=== PATIENT | female | born 1940 ===

== ENCOUNTER 2018-05-07 18:48 | Observation (INO) | payer MEDICARE, OTHER ==
[2018-05-07 18:49] VITALS: BMI 36.6
--- NOTE | 2018-05-07 20:22 | C.PDOC ---
History Of Present Illness 77 yr old F w/ hx of DM, HTN p/w cough, congestion, body aches for she was seen 1 week prior at [facility]. Pt was diagnosed with anxiety / Gastric reflux on 05/04 and was supposed to have started trazodone at that time. Daughter bedside notes that nothing was done at either hospital although bcx, labs and ct imaging, abx and tamiflu were all done. Per daughter and pt, pt has had cough, fever and body aches over the past 1.5 weeks, that has stayed relatively the same. It has not worsened nor improved. Pt had round of abx as well as tamiflu. She denies any neck stiffness of AMS. No fall or trauma. No GI or complaints. No CP, only sob and cough. No leg swelling. No other complaints. Time Seen by Provider: 05/07/18 19:24 Chief Complaint (Nursing): Flu-like Symptoms Past Medical History Vital Signs: Last Vital Signs Temp 98.9 F 05/07/18 19:11 Pulse 106 H 05/07/18 19:11 Resp 22 05/07/18 19:11 BP 127/77 05/07/18 19:11 Pulse Ox 91 L 05/07/18 19:11 - Medical History PMH: Arthritis, Back Problems, Diabetes (type II), Gastritis, HTN, Hypercholesterolemia, Hyperlipidemia, Osteoporosis, Chronic Pain (back) Denies: Hepatitis, HIV, Chronic Kidney Disease, Seizures, Sexually Transmitted Disease Surgical History: Endoscopy, (x3) - [facility] Procedures INJECT/INFUSE NEC (12/11/14) Family History: States: Unknown Family Hx - Social History Hx Alcohol Use: No Hx Substance Use: No - Immunization History Hx Tetanus Toxoid Vaccination: No Hx Influenza Vaccination: No Hx Pneumococcal Vaccination: No Review Of Systems Constitutional: Positive for: Fever, Chills. Negative for: Sweats Eyes: Negative for: Pain, Vision Change ENT: Positive for: Nose Congestion. Negative for: Ear Pain, Ear Discharge, Mouth Pain, Mouth Swelling Cardiovascular: Negative for: Chest Pain, Palpitations, Orthopnea, Edema Respiratory: Positive for: Cough, Shortness of Breath. Negative for: Hemoptysis, SOB with Excertion, Pleuritic Pain, Sputum Gastrointestinal: Negative for: Nausea, Vomiting, Abdominal Pain, Constipation, Melena, Hematochezia, Hematemesis Genitourinary: Negative for: Dysuria, Frequency, Hematuria, Vaginal Discharge Musculoskeletal: Negative for: Neck Pain, Shoulder Pain, Back Pain Skin: Negative for: Rash, Lesions, Jaundice Neurological: Negative for: Weakness, Numbness Psych: Negative for: Anxiety Physical Exam - Physical Exam Appears: Well, Non-toxic, No Acute Distress Skin: Normal Color, Warm Head: Atraumatic, Normacephalic Eye(s): bilateral: Normal Inspection, PERRL, EOMI Ear(s): Bilateral: Normal Nose: Normal Oral Mucosa: Moist Tongue: Normal Appearing Lips: Normal Appearing Teeth: Normal Dentition Gingiva: Normal Appearing Throat: Normal, No Erythema, No Exudate Neck: Normal, Normal ROM, Supple, Other (no meningeal signs) Lymphatic: Normal Exam Chest: Symmetrical Cardiovascular: Other (tachy) Respiratory: Normal Breath Sounds, No Decreased Breath Sounds, No Accessory Muscle Use, No Rales, No Rhonchi, No Stridor, No Wheezing Gastrointestinal/Abdominal: Normal Exam, Soft, No Tenderness Back: Normal Inspection, No CVA Tenderness, No Vertebral Tenderness, No De creased ROM Extremity: No Normal ROM Extremity: Bilateral: Atraumatic Pulses: Left Dorsalis Pedis: Normal, Right Dorsalis Pedis: Normal Neurological/Psych: Oriented x3, Normal Speech, Normal Cognition Extremity: Right: No Drift, Left: No Drift, Upper: No Drift, Lower: No Drift ED Course And Treatment - Laboratory Results Result Diagrams: 05/07/18 20:23 05/07/18 20:23 O2 Sat by Pulse Oximetry: 91 Medical Decision Making Medical Decision Makin yr old F w/ hx of HTN, Gastritis, DM p/w cough, fever, congestion. Seen previously at [facility] multiple times for similiar complaints w/ +gastritis. Was rx w/ abx and tamiflu. Has not had much improvement with either. BCX x2 previously reviewed were negative. UCX w/ Klebsiella on 05/01. No urinary complaints however but diffuse weakness and has been having intermittent abd pain x 1week. per pt. Non-unilateral weakness. On exam no FND noted. Will seek labs and imaging. WBC 13k, Tachy at 92 UTI w/ 10 WBC, 2LE. previous susceptibilities noted of previous +Urine CUL and Cipro started BP stable. Bcx drawn previously Will likely require admission given UTI, weakness, inability to do ADLs. ASIM PMD: clinic doctor. Dr. Martel paged to eval pt Dr. Martel (IM) bedside evaluating pt. [id number] Martel to his service: requesting repeat UA (straight cath) Pt in NAD and agreeable to plan. Disposition - Disposition Disposition Time: 00:54 Condition: GOOD Forms: [facility] (Croatian) - Clinical Impression Clinical Impression: Influenza-like illness, UTI (urinary tract infection)
[2018-05-07 20:30] LABS: BASO % 0.2 % (0.0-2.0); HEMOGLOBIN 13.7 g/dL (11.0-16.0); LYMPH # 1.7 K/uL (1.0-4.3); LYMPH % 12.2 % (20.0-40.0); MEAN CELL VOLUME 86.7 fL (81.0-99.0); MEAN CORPUSCULAR HEMOGLOBIN 27.9 pg (27.0-31.0); MEAN CORPUSCULAR HGB CONC 32.2 g/dL (33.0-37.0); MEAN PLATELET VOLUME 10.4 fL (7.2-11.7); MONO # 1.2 K/uL (0.0-0.8); MONO % 8.7 % (0.0-10.0); NEUT % 78.9 % (50.0-75.0); RBC 4.92 Mil/uL (3.80-5.20); RED CELL DISTRIBUTION WIDTH 14.1 % (11.5-14.5); WHITE BLOOD COUNT 13.9 K/uL (4.8-10.8)
[2018-05-07 20:42] LABS: ALB/GLOB RATIO 1.4 (1.0-2.1); ALBUMIN 4.5 g/dL (3.5-5.0); ALT/SGPT 29 U/L (9-52); AST/SGOT 47 U/L (14-36); BLOOD UREA NITROGEN 6 mg/dL (7-17); CALCIUM 8.9 mg/dl (8.6-10.4); GFR NON-AFRICAN AMERICAN > 60
[2018-05-07 20:49] LABS: VENOUS BLOOD GAS BASE EXCESS 7.8 mmol/L (0.0-2.0); VENOUS BLOOD GAS PCO2 49 mmHg (40-60); VENOUS BLOOD GAS PO2 26 mm/Hg (30-55); VENOUS BLOOD PH 7.44 (7.32-7.43)
[2018-05-07 20:54] LABS: B-TYPE NATRIURETIC PEPTIDE 196 pg/mL (0-900)
[2018-05-07 23:02] LABS: SQUAMOUS EPITHIAL 1 /hpf (0-5); URINE BACTERIA RARE (<OCC); URINE BILIRUBIN NEGATIVE (NEGATIVE); URINE BLOOD 1+ (NEGATIVE); URINE CLARITY Clear (Clear); URINE COLOR Yellow (YELLOW); URINE GLUCOSE (UA) NORMAL (Normal); URINE LEUKOCYTE ESTERASE 2+ Leu/uL (Negative); URINE PROTEIN NEGATIVE (NEGATIVE); URINE UROBILINOGEN NORMAL mg/dL (0.2-1.0)
[2018-05-07] MEDS ORDERED: Ciprofloxacin 400mg/200ml D5W 400 MG/200 ML BAG IVPB STA (23:43)
[2018-05-07] MEDS ORDERED: Ciprofloxacin 400mg/200ml D5W 400 MG/200 ML BAG IVPB ONE (23:52)
[2018-05-08] MEDS: Sodium Chloride 0.9% 1,000 ML IV SCH ×4 (01:54→20:05)
--- NOTE | 2018-05-08 02:26 | CP.PCM.HP ---
<Corbin Martel P - Last Filed: 05/08/18 08:52> Meds Allergies/Adverse Reactions: Allergies Allergy/AdvReac Type Severity Reaction Status Date / Time No Known Allergies Allergy Verified 05/07/18 19:18 Results - Vital Signs Recent Vital Signs: Last Vital Signs Temp 98.9 F 05/08/18 06:59 Pulse 89 05/08/18 06:59 Resp 17 05/08/18 06:59 BP 156/81 H 05/08/18 06:59 Pulse Ox 94 L 05/08/18 06:59 - Labs Result Diagrams: 05/08/18 05:11 05/08/18 05:11 Labs: Laboratory Results - last 24 hr 05/07/18 05/07/18 05/07/18 20:23 20:23 20:23 WBC 13.9 H RBC 4.92 Hgb 13.7 Hct 42.7 MCV 86.7 MCH 27.9 MCHC 32.2 L RDW 14.1 Plt Count 255 MPV 10.4 Neut % (Auto) 78.9 H Lymph % (Auto) 12.2 L [place] % (Auto) 8.7 Eos % (Auto) 0.0 Baso % (Auto) 0.2 Neut # (Auto) 11.0 H Lymph # (Auto) 1.7 [place] # (Auto) 1.2 H Eos # (Auto) 0.0 Baso # (Auto) 0.0 pO2 VBG pH VBG pCO2 VBG HCO3 VBG Total CO2 VBG O2 Sat (Calc) VBG Base Excess VBG Potassium Glucose Lactate Sodium 135 Potassium 3.1 L Chloride 93 L Carbon Dioxide 32 H Anion Gap 13 BUN 6 L Creatinine 0.7 Est GFR ( Amer) > 60 Est GFR (Non-Af Amer) > 60 Random Glucose 150 H Calcium 8.9 Phosphorus Magnesium Total Bilirubin 1.5 H AST 47 H D ALT 29 Alkaline Phosphatase 95 Troponin I < 0.0120 NT-Pro-B Natriuret Pep 196 Total Protein 7.7 Albumin 4.5 Globulin 3.2 Albumin/Globulin Ratio 1.4 Venous Blood Potassium Urine Color Urine Clarity Urine pH Ur Specific [place] Urine Protein Urine Glucose (UA) Urine Ketones Urine Blood Urine Nitrate Urine Bilirubin Urine Urobilinogen Ur Leukocyte Esterase Urine WBC (Auto) Urine RBC (Auto) Ur Squamous Epith Cells Urine Bacteria Influenza Typ A,B (EIA) Negative for flu a/b 05/07/18 05/07/18 05/08/18 20:45 22:48 05:11 WBC 14.9 H RBC 4.47 Hgb 12.3 Hct 38.9 MCV 87.0 MCH 27.6 MCHC 31.7 L RDW 14.2 Plt Count 216 MPV 9.8 Neut % (Auto) 76.0 H Lymph % (Auto) 14.4 L [place] % (Auto) 9.2 Eos % (Auto) 0.0 Baso % (Auto) 0.4 Neut # (Auto) 11.3 H Lymph # (Auto) 2.2 [place] # (Auto) 1.4 H Eos # (Auto) 0.0 Baso # (Auto) 0.1 pO2 26 L VBG pH 7.44 H VBG pCO2 49 VBG HCO3 29.8 VBG Total CO2 34.8 H VBG O2 Sat (Calc) 53.0 VBG Base Excess 7.8 H VBG Potassium 3.2 L Glucose 153 H Lactate 1.4 Sodium 137.0 Potassium Chloride 99.0 Carbon Dioxide Anion Gap BUN Creatinine Est GFR ( Amer) Est GFR (Non-Af Amer) Random Glucose Calcium Phosphorus Magnesium Total Bilirubin AST ALT Alkaline Phosphatase Troponin I NT-Pro-B Natriuret Pep Total Protein Albumin Globulin Albumin/Globulin Ratio Venous Blood Potassium 3.2 L Urine Color Yellow Urine Clarity Clear Urine pH 5.0 Ur Specific [place] 1.011 Urine Protein Negative Urine Glucose (UA) Normal Urine Ketones 2+ H Urine Blood 1+ H Urine Nitrate Negative Urine Bilirubin Negative Urine Urobilinogen Normal Ur Leukocyte Esterase 2+ H Urine WBC (Auto) 10 H Urine RBC (Auto) 2 Ur Squamous Epith Cells 1 Urine Bacteria Rare Influenza Typ A,B (EIA) 05/08/18 05:11 WBC RBC Hgb Hct MCV MCH MCHC RDW Plt Count MPV Neut % (Auto) Lymph % (Auto) [place] % (Auto) Eos % (Auto) Baso % (Auto) Neut # (Auto) Lymph # (Auto) [place] # (Auto) Eos # (Auto) Baso # (Auto) pO2 VBG pH VBG pCO2 VBG HCO3 VBG Total CO2 VBG O2 Sat (Calc) VBG Base Excess VBG Potassium Glucose Lactate Sodium 135 Potassium 2.7 L Chloride 103 Carbon Dioxide 25 Anion Gap 10 BUN 5 L Creatinine 0.5 L Est GFR ( Amer) > 60 Est GFR (Non-Af Amer) > 60 Random Glucose 123 H Calcium 7.1 L Phosphorus 3.4 Magnesium 1.7 Total Bilirubin 1.3 AST 32 ALT 28 Alkaline Phosphatase 69 Troponin I NT-Pro-B Natriuret Pep Total Protein 5.7 L Albumin 3.2 L D Globulin 2.5 Albumin/Globulin Ratio 1.3 Venous Blood Potassium Urine Color Urine Clarity Urine pH Ur Specific [place] Urine Protein Urine Glucose (UA) Urine Ketones Urine Blood Urine Nitrate Urine Bilirubin Urine Urobilinogen Ur Leukocyte Esterase Urine WBC (Auto) Urine RBC (Auto) Ur Squamous Epith Cells Urine Bacteria Influenza Typ A,B (EIA) Attending/Attestation - Attestation I have personally seen and examined this patient.: Yes I have fully participated in the care of the patient.: Yes I have reviewed all pertinent clinical information: Yes Notes (Text): 05/08/18 07:31 Flu like symptom, productive cough, poor intake, headache, bodyache, low grade temp at home Clinical dehydration, with mild contraction alkalosis, hypokalemia Recent severe gastritis on EGD due to NSAIDS use for arthritis NIDDM on metformin H/o htn Abnormal UA without any clinical signs and symptoms related to uti Plan IVF Doxycycline for bronchitis UA/CS catherterized sample temp hold on metformin as patient currently going through f/u like symptoms Continue PPI, sucralfate, losartan GI/DVt prophylaxis Accchecks, sliding scale depending on accuchecks See orders for detail. 05/08/18 07:35 <Rick Alvarez - Last Filed: 05/08/18 09:27> History of Present Illness - History of Present Illness History of Present Illness: PGY1 H&P for medicine hospitalist CC: weakness, cough This is a 77 year old female with PMH of arthritis, NIDDM2, back problems, HTN, hypercholesterolemia, osteoporosis who complains of a 1.5 week history of flu like symptoms, productive cough, and bodyaches. Patient also reports feeling weak and having poor oral intake. Endorses low grade fever at home. Pt was recently diagnosed with gastritis on EGD secondary to NSAID use for arthritic pain. Patient denies chest pain, sob, abdominal pain. PMD: Dr. Melton GI: Dr. Stack PMH: arthritis, NIDDM2, back problems, HTN, hypercholesterolemia, osteoporosis, recently diagnosed with gastritis on EGD secondary to NSAID use for arthritic pain PSH: (x3) Meds: Metformin, HCTZ, Losartan, Protonix, diflucan Allx: NKDA Present on Admission - Present on Admission Any Indicators Present on Admission: No Review of Systems - Review of Systems All systems: reviewed and no additional remarkable complaints except (as per HPI) Past Patient History - Infectious Disease Hx of Infectious Diseases: None - Past Medical History & Family History Past Medical History?: Yes - Past Social History Smoking Status: Never Smoked - CARDIAC Hx Hypercholesterolemia: Yes Hx Hypertension: Yes - PULMONARY Hx Tuberculosis: No - NEUROLOGICAL Hx Seizures: No - HEENT Hx HEENT Problems: No - RENAL Hx Chronic Kidney Disease: No - ENDOCRINE/METABOLIC Hx Endocrine Disorders: Yes Hx Diabetes Mellitus Type 2: Yes - HEMATOLOGICAL/ONCOLOGICAL Hx Human Immunodeficiency Virus (HIV): No - INTEGUMENTARY Hx Dermatological Problems: No - MUSCULOSKELETAL/RHEUMATOLOGICAL Hx Arthritis: Yes Hx Osteoporosis: Yes - GASTROINTESTINAL Hx Gastritis: Yes - GENITOURINARY/GYNECOLOGICAL Hx Sexually Transmitted Disorders: No - PSYCHIATRIC Hx Substance Use: No - SURGICAL HISTORY Hx Surgeries: Yes - ANESTHESIA Hx Anesthesia: Yes Hx Anesthesia Reactions: No Hx Malignant Hyperthermia: No Physical Exam - Constitutional Appears: Non-toxic, No Acute Distress - Head Exam Head Exam: NORMAL INSPECTION - Eye Exam Eye Exam: EOMI, Normal appearance - ENT Exam ENT Exam: Mucous Membranes Dry - Respiratory Exam Respiratory Exam: Clear to Auscultation Bilateral, NORMAL BREATHING PATTERN. absent: Rales, Rhonchi, Wheezes - Cardiovascular Exam Cardiovascular Exam: Tachycardia, REGULAR RHYTHM, +S1, +S2 - GI/Abdominal Exam GI & Abdominal Exam: Normal Bowel Sounds, Soft. absent: Tenderness - Extremities Exam Extremities exam: Positive for: normal inspection, pedal pulses present - Back Exam Back exam: NORMAL INSPECTION. absent: CVA tenderness (L), CVA tenderness (R) - Neurological Exam Neurological exam: Alert, Oriented x3 - Psychiatric Exam Psychiatric exam: Normal Affect, Normal Mood - Skin Skin Exam: Dry, Normal Color, Warm Additional comments: decreased skin turgor Results - Vital Signs Recent Vital Signs: Last Vital Signs Temp 98 F 05/07/18 23:28 Pulse 92 H 05/07/18 23:28 Resp 20 05/07/18 23:28 BP 135/69 05/07/18 23:28 Pulse Ox 91 L 05/08/18 00:56 - Labs Result Diagrams: 05/08/18 05:11 05/08/18 05:11 Labs: Laboratory Results - last 24 hr 05/07/18 05/07/18 05/07/18 20:23 20:23 20:23 WBC 13.9 H RBC 4.92 Hgb 13.7 Hct 42.7 MCV 86.7 MCH 27.9 MCHC 32.2 L RDW 14.1 Plt Count 255 MPV 10.4 Neut % (Auto) 78.9 H Lymph % (Auto) 12.2 L [place] % (Auto) 8.7 Eos % (Auto) 0.0 Baso % (Auto) 0.2 Neut # (Auto) 11.0 H Lymph # (Auto) 1.7 [place] # (Auto) 1.2 H Eos # (Auto) 0.0 Baso # (Auto) 0.0 pO2 VBG pH VBG pCO2 VBG HCO3 VBG Total CO2 VBG O2 Sat (Calc) VBG Base Excess VBG Potassium Glucose Lactate Sodium 135 Potassium 3.1 L Chloride 93 L Carbon Dioxide 32 H Anion Gap 13 BUN 6 L Creatinine 0.7 Est GFR ( Amer) > 60 Est GFR (Non-Af Amer) > 60 Random Glucose 150 H Calcium 8.9 Total Bilirubin 1.5 H AST 47 H D ALT 29 Alkaline Phosphatase 95 Troponin I < 0.0120 NT-Pro-B Natriuret Pep 196 Total Protein 7.7 Albumin 4.5 Globulin 3.2 Albumin/Globulin Ratio 1.4 Venous Blood Potassium Urine Color Urine Clarity Urine pH Ur Specific [place] Urine Protein Urine Glucose (UA) Urine Ketones Urine Blood Urine Nitrate Urine Bilirubin Urine Urobilinogen Ur Leukocyte Esterase Urine WBC (Auto) Urine RBC (Auto) Ur Squamous Epith Cells Urine Bacteria Influenza Typ A,B (EIA) Negative for flu a/b 05/07/18 05/07/18 20:45 22:48 WBC RBC Hgb Hct MCV MCH MCHC RDW Plt Count MPV Neut % (Auto) Lymph % (Auto) [place] % (Auto) Eos % (Auto) Baso % (Auto) Neut # (Auto) Lymph # (Auto) [place] # (Auto) Eos # (Auto) Baso # (Auto) pO2 26 L VBG pH 7.44 H VBG pCO2 49 VBG HCO3 29.8 VBG Total CO2 34.8 H VBG O2 Sat (Calc) 53.0 VBG Base Excess 7.8 H VBG Potassium 3.2 L Glucose 153 H Lactate 1.4 Sodium 137.0 Potassium Chloride 99.0 Carbon Dioxide Anion Gap BUN Creatinine Est GFR ( Amer) Est GFR (Non-Af Amer) Random Glucose Calcium Total Bilirubin AST ALT Alkaline Phosphatase Troponin I NT-Pro-B Natriuret Pep Total Protein Albumin Globulin Albumin/Globulin Ratio Venous Blood Potassium 3.2 L Urine Color Yellow Urine Clarity Clear Urine pH 5.0 Ur Specific [place] 1.011 Urine Protein Negative Urine Glucose (UA) Normal Urine Ketones 2+ H Urine Blood 1+ H Urine Nitrate Negative Urine Bilirubin Negative Urine Urobilinogen Normal Ur Leukocyte Esterase 2+ H Urine WBC (Auto) 10 H Urine RBC (Auto) 2 Ur Squamous Epith Cells 1 Urine Bacteria Rare Influenza Typ A,B (EIA) Assessment & Plan - Assessment and Plan (Free Text) Assessment: This is a 77 year old female with PMH of arthritis, NIDDM2, back problems, HTN, hypercholesterolemia, osteoporosis recently diagnosed with gastritis on EGD secondary to NSAID use for arthritic pain who complains of a 1.5 week history of flu like symptoms, productive cough, and bodyaches. Plan Dehydration with contraction alkalosis likely from recovering from flu Influenza a/b is negative NS IVF at 125 mL/hr bicarb 32, potassium is 3.1 on admission Replete potassium and f/u morning labs Bronchitis CXR shows no obvious infiltrate; f/u official reading Doxycycline 100 mg IVPB q12h Guaifenesin 600 mg PO BID NIDDM Hold metformin as patient currently going through flu like symptoms Accuchecks ACHS ISS low achs Recent gastritis diagnosis on EGD Protonix 40 mg PO BID Sucralfate 1 gm PO BID Hx of HTN Continue home losartan Hold HCTZ as pt has contraction alkalosis Abnormal UA F/u repeat UA/CS catheterized sample F/u procalcitonin GI/DVT ppx with Protonix and heparin 5000 units sc q12h CCD moderate Case reviewed and discussed with attending physician, Dr. Delonte Alvarez PGY1
[2018-05-08] MEDS: guaiFENesin 600 mg ER Tab PO SCH ×3 (02:47→18:54)
[2018-05-08] MEDS: Potassium Chloride 20 mEq ER Tab PO SCH ×2 (05:10→09:30)
[2018-05-08 05:15] LABS: BASO # 0.1 K/uL (0.0-0.2); BASO % 0.4 % (0.0-2.0); HEMOGLOBIN 12.3 g/dL (11.0-16.0); LYMPH # 2.2 K/uL (1.0-4.3); LYMPH % 14.4 % (20.0-40.0); MEAN CORPUSCULAR HEMOGLOBIN 27.6 pg (27.0-31.0); MEAN CORPUSCULAR HGB CONC 31.7 g/dL (33.0-37.0); MEAN PLATELET VOLUME 9.8 fL (7.2-11.7); MONO # 1.4 K/uL (0.0-0.8); MONO % 9.2 % (0.0-10.0); NEUT # 11.3 K/uL (1.8-7.0); RBC 4.47 Mil/uL (3.80-5.20); RED CELL DISTRIBUTION WIDTH 14.2 % (11.5-14.5); WHITE BLOOD COUNT 14.9 K/uL (4.8-10.8)
[2018-05-08 05:31] LABS: ALB/GLOB RATIO 1.3 (1.0-2.1); ALBUMIN 3.2 g/dL (3.5-5.0); ALT/SGPT 28 U/L (9-52); AST/SGOT 32 U/L (14-36); BLOOD UREA NITROGEN 5 mg/dL (7-17); CALCIUM 7.1 mg/dl (8.6-10.4); GFR NON-AFRICAN AMERICAN > 60
[2018-05-08] MEDS ORDERED: Pantoprazole 40 mg EC Tab PO ONE (06:25)
[2018-05-08] MEDS ORDERED: Potassium Chloride 20 mEq/15 ml LIQ UD ONE ×2 (06:25→12:16)
[2018-05-08] MEDS: Pantoprazole 40 mg Susp UD PO SCH ×2 (06:30→15:48)
[2018-05-08] MEDS ORDERED: traZODone 25 mg Tab PO PRN (07:27)
[2018-05-08] MEDS ORDERED: Dextrose 50% SYRINGE Inj (50 ml) IV PRN (09:24)
[2018-05-08] MEDS ORDERED: Glucagon Recombinant 1 mg Inj IM PRN (09:24)
[2018-05-08] MEDS: Sucralfate 1 gm/10 ml Oral Susp UD PO SCH ×2 (11:54→18:54)
--- NOTE | 2018-05-08 11:54 | RAD ---
Date of service: 05/07/2018 HISTORY: cough COMPARISON: No prior. TECHNIQUE: Chest PA and lateral FINDINGS: LUNGS: No active pulmonary disease. PLEURA: No significant pleural effusion identified. No pneumothorax apparent. CARDIOVASCULAR: No aortic atherosclerotic calcification present. Normal cardiac size. No pulmonary vascular congestion. OSSEOUS STRUCTURES: No significant abnormalities. VISUALIZED UPPER ABDOMEN: Normal. OTHER FINDINGS: None. IMPRESSION: No active disease. Concordant results with the preliminary interpretation rendered by the emergency department physician procedure.
[2018-05-08] MEDS ORDERED: Tramadol 25 mg PO STA (11:58)
[2018-05-08] MEDS ORDERED: (Novolin R) Insulin Human Regular 100 units/ml vial ONE (12:09)
[2018-05-08] MEDS: (Novolin R) Insulin Human Regular 100 units/ml vial SC SCH ×3 (12:09→22:07)
[2018-05-08] MEDS ORDERED: Potassium Chloride 20 mEq/15 ml LIQ UD PO ONE ×2 (12:30→16:30)
--- NOTE | 2018-05-08 17:04 | CP.PCM.PN ---
<Telly Franco - Last Filed: 05/08/18 17:12> Subjective - Date & Time of Evaluation Date of Evaluation: 05/08/18 Time of Evaluation: 17:01 - Subjective Subjective: HOSPITALIST SERVICE Pt seen and examined at bedside, Pt reports burning while urinating and GI u8pset, reports history of NSAID use and HPylori infection as diagnosed by EGD w/ Dr Darren Funez GI in dexter, noncompliant w/ meds, bilious productive cough. reports fevers and sweating. denies diarrhea, blood in urine/stools Objective - Vital Signs/Intake and Output Vital Signs (last 24 hours): Temp Pulse Resp BP Pulse Ox 97.5 F L 85 18 128/77 94 L 05/08/18 16:53 05/08/18 16:53 05/08/18 16:53 05/08/18 16:53 05/08/18 16:53 - Medications Medications: Current Medications Dextrose (Dextrose 50% Inj) 0 ml IV STAT PRN; Protocol PRN Reason: Hypoglycemia Protocol Dextrose (Glutose 15) 0 gm PO ONCE PRN; Protocol PRN Reason: Hypoglycemia Protocol Glucagon (Glucagen Diagnostic Kit) 0 mg IM STAT PRN; Protocol PRN Reason: Hypoglycemia Protocol Guaifenesin (Mucinex La) 600 mg PO BID [facility] Last Admin: 05/08/18 11:53 Dose: 600 mg Heparin Sodium (Porcine) (Heparin) 5,000 units SC Q12 [facility] Last Admin: 05/08/18 11:54 Dose: 5,000 units Sodium Chloride (Sodium Chloride 0.9%) 1,000 mls @ 125 mls/hr IV .Q8H [facility] Last Admin: 05/08/18 11:53 Dose: 125 mls/hr Doxycycline Hyclate 100 mg/ (Sodium Chloride) 100 mls @ 100 mls/hr IVPB Q12H [facility]; Protocol Last Admin: 05/08/18 11:53 Dose: 100 mls/hr Dextrose (Dextrose 5% In Water 1000 Ml) 1,000 mls @ 0 mls/hr IV .Q0M PRN; Protocol PRN Reason: Hypoglycemia Protocol Insulin Human Regular (Novolin R) 0 unit SC ACHS [facility]; Protocol Last Admin: 05/08/18 12:09 Dose: 1 unit Losartan Potassium (Cozaar) 100 mg PO DAILY [facility] Last Admin: 05/08/18 11:54 Dose: 100 mg Pantoprazole Sodium (Protonix Susp) 40 mg PO 0600,1600 [facility] Last Admin: 05/08/18 15:48 Dose: 40 mg Sucralfate (Carafate Oral Susp) 1 gm PO BID [facility] Last Admin: 05/08/18 11:54 Dose: 1 gm Trazodone HCl (Desyrel) 25 mg PO HS PRN PRN Reason: Insomnia - Labs Labs: 05/08/18 05:11 05/08/18 05:11 - Additional Findings Additional findings: - Constitutional Appears: Non-toxic, No Acute Distress - Head Exam Head Exam: NORMAL INSPECTION - Eye Exam Eye Exam: EOMI, Normal appearance - ENT Exam ENT Exam: Mucous Membranes Dry - Respiratory Exam Respiratory Exam: Clear to Auscultation Bilateral, NORMAL BREATHING PATTERN. absent: Rales, Rhonchi, Wheezes - Cardiovascular Exam Cardiovascular Exam: Tachycardia, REGULAR RHYTHM, +S1, +S2 - GI/Abdominal Exam GI & Abdominal Exam: Normal Bowel Sounds, Soft. absent: Tenderness - Extremities Exam Extremities exam: Positive for: normal inspection, pedal pulses present - Back Exam Back exam: NORMAL INSPECTION. absent: CVA tenderness (L), CVA tenderness (R) - Neurological Exam Neurological exam: Alert, Oriented x3 - Psychiatric Exam Psychiatric exam: Normal Affect, Normal Mood - Skin Skin Exam: Dry, Normal Color, Warm Additional comments: decreased skin turgor Assessment and Plan - Assessment and Plan (Free Text) Assessment: This is a 77 year old female with PMH of arthritis, NIDDM2, back problems, HTN, hypercholesterolemia, osteoporosis recently diagnosed with gastritis on EGD secondary to NSAID use for arthritic pain who complains of a 1.5 week history of flu like symptoms, productive cough, and bodyaches. Plan UTI f/u urine cultures Doxy 100 IVPB started 05/08 Recent gastritis diagnosis on EGD Dr Chandler Consulted GI f/u am H Pylori and Cdiff Protonix 40 mg PO BID Sucralfate 1 gm PO BID Dehydration with contraction alkalosis likely from recovering from flu Influenza a/b is negative NS IVF at 125 mL/hr Replete potassium and f/u morning labs Bronchitis CXR shows no obvious infiltrate; f/u official reading Doxycycline 100 mg IVPB q12h Guaifenesin 600 mg PO BID NIDDM Hold metformin as patient currently going through flu like symptoms Accuchecks ACHS ISS low achs Hx of HTN Continue home losartan Hold HCTZ as pt has contraction alkalosis GI/DVT ppx with Protonix and heparin 5000 units sc q12h CCD moderate Case reviewed and discussed with attending physician, Dr. Devi Franco PGY1 <Mervat Quinonez - Last Filed: 05/08/18 19:45> Objective - Vital Signs/Intake and Output Vital Signs (last 24 hours): Temp Pulse Resp BP Pulse Ox 98.2 F 82 20 144/79 96 05/08/18 19:30 05/08/18 19:30 05/08/18 19:30 05/08/18 19:30 05/08/18 19:30 - Medications Medications: Current Medications Dextrose (Dextrose 50% Inj) 0 ml IV STAT PRN; Protocol PRN Reason: Hypoglycemia Protocol Dextrose (Glutose 15) 0 gm PO ONCE PRN; Protocol PRN Reason: Hypoglycemia Protocol Glucagon (Glucagen Diagnostic Kit) 0 mg IM STAT PRN; Protocol PRN Reason: Hypoglycemia Protocol Guaifenesin (Mucinex La) 600 mg PO BID [facility] Last Admin: 05/08/18 18:54 Dose: 600 mg Heparin Sodium (Porcine) (Heparin) 5,000 units SC Q12 [facility] Last Admin: 05/08/18 11:54 Dose: 5,000 units Sodium Chloride (Sodium Chloride 0.9%) 1,000 mls @ 125 mls/hr IV .Q8H [facility] Last Admin: 05/08/18 17:54 Dose: 125 mls/hr Doxycycline Hyclate 100 mg/ (Sodium Chloride) 100 mls @ 100 mls/hr IVPB Q12H [facility]; Protocol Last Admin: 05/08/18 11:53 Dose: 100 mls/hr Dextrose (Dextrose 5% In Water 1000 Ml) 1,000 mls @ 0 mls/hr IV .Q0M PRN; Protocol PRN Reason: Hypoglycemia Protocol Insulin Human Regular (Novolin R) 0 unit SC ACHS [facility]; Protocol Last Admin: 05/08/18 16:55 Dose: 1 unit Losartan Potassium (Cozaar) 100 mg PO DAILY [facility] Last Admin: 05/08/18 11:54 Dose: 100 mg Pantoprazole Sodium (Protonix Susp) 40 mg PO 0600,1600 [facility] Last Admin: 05/08/18 15:48 Dose: 40 mg Sucralfate (Carafate Oral Susp) 1 gm PO BID [facility] Last Admin: 05/08/18 18:54 Dose: 1 gm Trazodone HCl (Desyrel) 25 mg PO HS PRN PRN Reason: Insomnia - Labs Labs: 05/08/18 05:11 05/08/18 05:11 Attending/Attestation - Attestation I have personally seen and examined this patient.: Yes I have fully participated in the care of the patient.: Yes I have reviewed all pertinent clinical information, including history, physical exam and plan: Yes Notes (Text): seen and examined this morning in the ER. Patient looks sick . complsining of feeling tired and poor appetite,not eating for few days,nausea,s/p diarrhea and epigastric pain. Has h/o EGD as mentioned by the resident. positive H pylori,not completed her meds? As per her daughter and her G daughters at bedside. she is weak and decline ambulation and ADL we will continue hydration,diet as tolerated,follow stool study.follow H pylori Ab,continue protonix, GI consult Has cough and bronchitis . we will continue doxycycline.Urine not collected properly,repeat UA,follow culture follow electrolytes afte replace K PT evaluation
[2018-05-08 19:31] VITALS: RESP 20
[2018-05-09] MEDS: Pantoprazole 40 mg Susp UD PO SCH (05:36)
[2018-05-09] MEDS: Sodium Chloride 0.9% 1,000 ML IV SCH (06:09)
[2018-05-09 07:30] LABS: BASO % 0.3 % (0.0-2.0); EOS # 0.1 K/uL (0.0-0.7); EOS % 0.6 % (0.0-4.0); HEMOGLOBIN 11.9 g/dL (11.0-16.0); LYMPH # 1.7 K/uL (1.0-4.3); LYMPH % 14.4 % (20.0-40.0); MEAN CORPUSCULAR HEMOGLOBIN 28.2 pg (27.0-31.0); MEAN CORPUSCULAR HGB CONC 32.8 g/dL (33.0-37.0); MEAN PLATELET VOLUME 9.9 fL (7.2-11.7); MONO # 1.2 K/uL (0.0-0.8); MONO % 10.2 % (0.0-10.0); NEUT # 8.7 K/uL (1.8-7.0); NEUT % 74.5 % (50.0-75.0); RBC 4.22 Mil/uL (3.80-5.20); RED CELL DISTRIBUTION WIDTH 14.3 % (11.5-14.5); WHITE BLOOD COUNT 11.7 K/uL (4.8-10.8)
--- NOTE | 2018-05-09 07:34 | CP.PCM.PN ---
<SalvadorTelly - Last Filed: 05/10/18 13:38> Subjective - Date & Time of Evaluation Date of Evaluation: 05/09/18 Time of Evaluation: 07:31 - Subjective Subjective: HOSPITALIST SERVICE Pt seen and examined at bedside, reports improvement in dysuria, reports breathing better, denies fever chills overnight however still feels fatigued and generalized body aches, denies chest pain, SOB NV. Pt understands current status and agrees with plan, daughter at bedside. Objective - Vital Signs/Intake and Output Vital Signs (last 24 hours): Temp Pulse Resp BP Pulse Ox 98.3 F 84 20 127/79 93 L 05/08/18 23:50 05/08/18 23:50 05/08/18 23:50 05/08/18 23:50 05/09/18 00:40 - Medications Medications: Current Medications Dextrose (Dextrose 50% Inj) 0 ml IV STAT PRN; Protocol PRN Reason: Hypoglycemia Protocol Dextrose (Glutose 15) 0 gm PO ONCE PRN; Protocol PRN Reason: Hypoglycemia Protocol Glucagon (Glucagen Diagnostic Kit) 0 mg IM STAT PRN; Protocol PRN Reason: Hypoglycemia Protocol Guaifenesin (Mucinex La) 600 mg PO BID [facility] Last Admin: 05/08/18 18:54 Dose: 600 mg Heparin Sodium (Porcine) (Heparin) 5,000 units SC Q12 [facility] Last Admin: 05/08/18 21:58 Dose: 5,000 units Doxycycline Hyclate 100 mg/ (Sodium Chloride) 100 mls @ 100 mls/hr IVPB Q12H [facility]; Protocol Last Admin: 05/08/18 21:58 Dose: 100 mls/hr Dextrose (Dextrose 5% In Water 1000 Ml) 1,000 mls @ 0 mls/hr IV .Q0M PRN; Protocol PRN Reason: Hypoglycemia Protocol Sodium Chloride (Sodium Chloride 0.9%) 1,000 mls @ 100 mls/hr IV .Q10H [facility] Last Admin: 05/09/18 06:09 Dose: Not Given Insulin Human Regular (Novolin R) 0 unit SC ACHS [facility]; Protocol Last Admin: 05/08/18 22:07 Dose: Not Given Losartan Potassium (Cozaar) 100 mg PO DAILY [facility] Last Admin: 05/08/18 11:54 Dose: 100 mg Pantoprazole Sodium (Protonix Susp) 40 mg PO 0600,1600 [facility] Last Admin: 05/09/18 05:36 Dose: 40 mg Sucralfate (Carafate Oral Susp) 1 gm PO BID [facility] Last Admin: 05/08/18 18:54 Dose: 1 gm Trazodone HCl (Desyrel) 25 mg PO HS PRN PRN Reason: Insomnia Last Admin: 05/08/18 21:58 Dose: 25 mg - Labs Labs: 05/08/18 05:11 05/08/18 20:32 - Additional Findings Additional findings: - Constitutional Appears: Non-toxic, No Acute Distress - Head Exam Head Exam: NORMAL INSPECTION - Eye Exam Eye Exam: EOMI, Normal appearance - ENT Exam ENT Exam: Mucous Membranes Dry - Respiratory Exam Respiratory Exam: Clear to Auscultation Bilateral, NORMAL BREATHING PATTERN. absent: Rales, Rhonchi, Wheezes - Cardiovascular Exam Cardiovascular Exam: Tachycardia, REGULAR RHYTHM, +S1, +S2 - GI/Abdominal Exam GI & Abdominal Exam: Normal Bowel Sounds, Soft. absent: Tenderness - Extremities Exam Extremities exam: Positive for: normal inspection, pedal pulses present - Back Exam Back exam: NORMAL INSPECTION. absent: CVA tenderness (L), CVA tenderness (R) - Neurological Exam Neurological exam: Alert, Oriented x3 - Psychiatric Exam Psychiatric exam: Normal Affect, Normal Mood - Skin Skin Exam: Dry, Normal Color, Warm Additional comments: Assessment and Plan - Assessment and Plan (Free Text) Assessment: This is a 77 year old female with PMH of arthritis, NIDDM2, back problems, HTN, hypercholesterolemia, osteoporosis recently diagnosed with gastritis on EGD secondary to NSAID use for arthritic pain who complains of a 1.5 week history of flu like symptoms, productive cough, and bodyaches. Plan UTI f/u urine cultures Doxy 100 IVPB started 05/08 Recent gastritis diagnosis on EGD Dr Chandler Consulted GI f/u am H Pylori and Cdiff Protonix 40 mg PO BID Sucralfate 1 gm PO BID Dehydration with contraction alkalosis likely from recovering from flu Influenza a/b is negative NS IVF at 125 mL/hr Replete potassium and f/u morning labs Bronchitis CXR shows no obvious infiltrate; f/u official reading Doxycycline 100 mg IVPB q12h Guaifenesin 600 mg PO BID NIDDM Hold metformin as patient currently going through flu like symptoms Accuchecks ACHS ISS low achs Hx of HTN Continue home losartan Hold HCTZ as pt has contraction alkalosis GI/DVT ppx with Protonix and heparin 5000 units sc q12h CCD moderate Case reviewed and discussed with attending physician, Dr. Devi Franco PGY1 <Mervat Quinonez - Last Filed: 05/10/18 16:41> Objective - Vital Signs/Intake and Output Vital Signs (last 24 hours): Temp Pulse Resp BP Pulse Ox 98.2 F 89 20 125/77 95 05/09/18 08:29 05/09/18 09:18 05/09/18 08:29 05/09/18 09:18 05/09/18 08:29 - Labs Labs: 05/09/18 07:22 05/09/18 07:22 Attending/Attestation - Attestation I have personally seen and examined this patient.: Yes I have fully participated in the care of the patient.: Yes I have reviewed all pertinent clinical information, including history, physical exam and plan: Yes Notes (Text): patient walked with the walker. Her abdominal pain is better.Spoke o her family members and daughter at bedside. Discussed about treating with antibiotics for H pylori and discharge meds seen and examined abdomen is soft and nontender. stable for discharge home with home PT Vs TCU I agree with the resident's documentation
[2018-05-09] MEDS: (Novolin R) Insulin Human Regular 100 units/ml vial SC SCH ×2 (07:44→12:09)
[2018-05-09 08:23] LABS: ALB/GLOB RATIO 1.3 (1.0-2.1); ALBUMIN 3.6 g/dL (3.5-5.0); ALT/SGPT 47 U/L (9-52); AST/SGOT 62 U/L (14-36); BLOOD UREA NITROGEN 6 mg/dL (7-17); CALCIUM 8.5 mg/dl (8.6-10.4); GFR NON-AFRICAN AMERICAN > 60
[2018-05-09 08:31] VITALS: TEMP 98.2; O2SAT 95
[2018-05-09 09:19] VITALS: BP 125/77; PULSE 89
[2018-05-09] MEDS: Sucralfate 1 gm/10 ml Oral Susp UD PO SCH (09:19)
[2018-05-09] MEDS: guaiFENesin 600 mg ER Tab PO SCH (09:19)
--- NOTE | 2018-05-09 10:32 | CP.PCM.CON ---
History of Present Illness - History of Present Illness History of Present Illness: This is a 77 year old woman with abdominal pain. Patient was recently evaluated by Dr. Stack at [facility]. EGD 04/03/2018 showed esophagitis, hiatal hernia, non-erosive gastritis and H pylori infection. Antibiotics were prescribed, but she did not complete the course. Since then, she has visited the ER 8 times: 04/06,04/10, 04/27, 04/29, 05/01, 05/02, 05/04, and 05/07. She was admitted after the last ER visit. At that time, she complained of cough, congestion and body aches. In addition, she complained of epigastric pain, burning, daily, intermittent, lasting up to a day at a time, unrelated to meals, and slightly relieved by defecation. She denies having heartburn and difficulty swallowing, though she does have a cough productive of green phlegm. She has loose bowel movements, not quantified, which the family attributes to taking antacids. She denies having rectal bleeding. Review of Systems - Review of Systems All systems: reviewed and no additional remarkable complaints except - Constitutional Constitutional: Chills, Fever, Weakness - EENT Ears: absent: Ear Pain - Cardiovascular Cardiovascular: absent: Chest Pain, Palpitations - Respiratory Respiratory: Cough, Dyspnea. absent: Hemoptysis - Gastrointestinal Gastrointestinal: Abdominal Pain, Diarrhea. absent: Constipation, Hematochezia, Melena, Nausea, Vomiting Past Patient History - Infectious Disease Hx of Infectious Diseases: None - Past Medical History & Family History Past Medical History?: Yes - Past Social History Smoking Status: Never Smoked - CARDIAC Hx Hypercholesterolemia: Yes Hx Hypertension: Yes - PULMONARY Hx Tuberculosis: No - NEUROLOGICAL Hx Seizures: No - HEENT Hx HEENT Problems: No - RENAL Hx Chronic Kidney Disease: No - ENDOCRINE/METABOLIC Hx Endocrine Disorders: Yes Hx Diabetes Mellitus Type 2: Yes - HEMATOLOGICAL/ONCOLOGICAL Hx Human Immunodeficiency Virus (HIV): No - INTEGUMENTARY Hx Dermatological Problems: No - MUSCULOSKELETAL/RHEUMATOLOGICAL Hx Arthritis: Yes Hx Osteoporosis: Yes - GASTROINTESTINAL Hx Gastritis: Yes - GENITOURINARY/GYNECOLOGICAL Hx Sexually Transmitted Disorders: No - PSYCHIATRIC Hx Substance Use: No - SURGICAL HISTORY Hx Surgeries: Yes - ANESTHESIA Hx Anesthesia: Yes Hx Anesthesia Reactions: No Hx Malignant Hyperthermia: No Meds Allergies/Adverse Reactions: Allergies Allergy/AdvReac Type Severity Reaction Status Date / Time No Known Allergies Allergy Verified 05/07/18 19:18 - Medications Medications: Current Medications Dextrose (Dextrose 50% Inj) 0 ml IV STAT PRN; Protocol PRN Reason: Hypoglycemia Protocol Dextrose (Glutose 15) 0 gm PO ONCE PRN; Protocol PRN Reason: Hypoglycemia Protocol Glucagon (Glucagen Diagnostic Kit) 0 mg IM STAT PRN; Protocol PRN Reason: Hypoglycemia Protocol Guaifenesin (Mucinex La) 600 mg PO BID [facility] Last Admin: 05/09/18 09:19 Dose: 600 mg Heparin Sodium (Porcine) (Heparin) 5,000 units SC Q12 [facility] Last Admin: 05/09/18 09:19 Dose: 5,000 units Doxycycline Hyclate 100 mg/ (Sodium Chloride) 100 mls @ 100 mls/hr IVPB Q12H [facility]; Protocol Last Admin: 05/09/18 08:32 Dose: 100 mls/hr Dextrose (Dextrose 5% In Water 1000 Ml) 1,000 mls @ 0 mls/hr IV .Q0M PRN; Protocol PRN Reason: Hypoglycemia Protocol Sodium Chloride (Sodium Chloride 0.9%) 1,000 mls @ 100 mls/hr IV .Q10H [facility] Last Admin: 05/09/18 06:09 Dose: Not Given Insulin Human Regular (Novolin R) 0 unit SC ACHS [facility]; Protocol Last Admin: 05/09/18 07:44 Dose: Not Given Losartan Potassium (Cozaar) 100 mg PO DAILY [facility] Last Admin: 05/09/18 09:19 Dose: 100 mg Pantoprazole Sodium (Protonix Susp) 40 mg PO 0600,1600 [facility] Last Admin: 05/09/18 05:36 Dose: 40 mg Sucralfate (Carafate Oral Susp) 1 gm PO BID [facility] Last Admin: 05/09/18 09:19 Dose: 1 gm Trazodone HCl (Desyrel) 25 mg PO HS PRN PRN Reason: Insomnia Last Admin: 05/08/18 21:58 Dose: 25 mg Physical Exam - Constitutional Appears: No Acute Distress - Head Exam Head Exam: ATRAUMATIC, NORMOCEPHALIC - Eye Exam Eye Exam: EOMI, PERRL - Neck Exam Neck exam: Negative for: Lymphadenopathy, Thyromegaly - Respiratory Exam Respiratory Exam: NORMAL BREATHING PATTERN. absent: Rales, Rhonchi, Wheezes - Cardiovascular Exam Cardiovascular Exam: REGULAR RHYTHM, +S1, +S2. absent: Gallop, Rubs, Systolic Murmur - GI/Abdominal Exam GI & Abdominal Exam: Normal Bowel Sounds, Soft. absent: Mass, Organomegaly, Tenderness - Rectal Exam Rectal Exam: Deferred - Extremities Exam Extremities exam: Negative for: calf tenderness, pedal edema Results - Vital Signs Recent Vital Signs: Last Vital Signs Temp 98.2 F 05/09/18 08:29 Pulse 89 05/09/18 09:18 Resp 20 05/09/18 08:29 BP 125/77 05/09/18 09:18 Pulse Ox 95 05/09/18 08:29 - Labs Result Diagrams: 05/09/18 07:22 05/09/18 07:22 Labs: Laboratory Results - last 24 hr 05/08/18 05/08/18 05/08/18 11:58 16:36 20:32 WBC RBC Hgb Hct MCV MCH MCHC RDW Plt Count MPV Neut % (Auto) Lymph % (Auto) Webb % (Auto) Eos % (Auto) Baso % (Auto) Neut # (Auto) Lymph # (Auto) Webb # (Auto) Eos # (Auto) Baso # (Auto) Sodium Potassium 4.1 Chloride Carbon Dioxide Anion Gap BUN Creatinine Est GFR ( Amer) Est GFR (Non-Af Amer) POC Glucose (mg/dL) 156 H 165 H Random Glucose Calcium Phosphorus Magnesium Total Bilirubin AST ALT Alkaline Phosphatase Total Protein Albumin Globulin Albumin/Globulin Ratio 05/08/18 05/09/18 05/09/18 20:47 06:40 07:22 WBC 11.7 H RBC 4.22 Hgb 11.9 Hct 36.3 MCV 86.0 MCH 28.2 MCHC 32.8 L RDW 14.3 Plt Count 268 MPV 9.9 Neut % (Auto) 74.5 Lymph % (Auto) 14.4 L Webb % (Auto) 10.2 H Eos % (Auto) 0.6 Baso % (Auto) 0.3 Neut # (Auto) 8.7 H Lymph # (Auto) 1.7 Webb # (Auto) 1.2 H Eos # (Auto) 0.1 Baso # (Auto) 0.0 Sodium Potassium Chloride Carbon Dioxide Anion Gap BUN Creatinine Est GFR ( Amer) Est GFR (Non-Af Amer) POC Glucose (mg/dL) 114 H 143 H Random Glucose Calcium Phosphorus Magnesium Total Bilirubin AST ALT Alkaline Phosphatase Total Protein Albumin Globulin Albumin/Globulin Ratio 05/09/18 07:22 WBC RBC Hgb Hct MCV MCH MCHC RDW Plt Count MPV Neut % (Auto) Lymph % (Auto) Webb % (Auto) Eos % (Auto) Baso % (Auto) Neut # (Auto) Lymph # (Auto) Webb # (Auto) Eos # (Auto) Baso # (Auto) Sodium 136 Potassium 3.7 Chloride 102 Carbon Dioxide 25 Anion Gap 12 BUN 6 L Creatinine 0.6 L Est GFR ( Amer) > 60 Est GFR (Non-Af Amer) > 60 POC Glucose (mg/dL) Random Glucose 136 H Calcium 8.5 L Phosphorus 2.4 L Magnesium 2.0 Total Bilirubin 1.3 AST 62 H D ALT 47 Alkaline Phosphatase 124 Total Protein 6.4 Albumin 3.6 Globulin 2.8 Albumin/Globulin Ratio 1.3 Assessment & Plan (1) Abdominal pain Assessment and Plan: Patient has chronic epigastric pain and history of esophagitis, hiatal hernia, H pylori infection. In addition, gallstones were found on ultrasound 03/21/[address] 05/07/2018. Recommend twice daily PPI and consider re-treatment of H pylori as an outpatient. Status: Acute
--- NOTE | 2018-05-09 11:07 | RAD ---
Date of service: 05/09/2018 HISTORY: pna, minor rales lower love COMPARISON: 05/07/2018 FINDINGS: LUNGS: Current lung volumes slightly more shallow than before. Consolidation. PLEURA: No significant pleural effusion identified, no pneumothorax apparent. CARDIOVASCULAR: No aortic atherosclerotic calcification present. Minimal cardiomegaly. Possible minimal pulmonary venous congestion. OSSEOUS STRUCTURES: Thoracic spondylosis. Partially visualized cervical arthrosis. Bilateral shoulder arthrosis. VISUALIZED UPPER ABDOMEN: Normal. OTHER FINDINGS: None. IMPRESSION: No consolidative pneumonia seen. No large pleural effusions seen. Trace effusions specially right side not excluded.
--- NOTE | 2018-05-09 11:10 | CP.PCM.DIS ---
<Telly Franco - Last Filed: 05/10/18 13:37> Provider - Provider Date of Admission: 05/08/18 00:53 Attending physician: Corbin Martel MD Consults: 05/08/18 11:44 Gastroenterology Consult Routine Comment: gastritis, history of NSAID use, bilious vomiting Consulting Provider: Kings Rodriges Consulting Physician: Kings Rodriges Reason for Consult: gastritis, history of NSAID use, bilious vomiting Time Spent in preparation of Discharge (in minutes): 45 Diagnosis - Discharge Diagnosis (1) H. pylori infection Status: Acute (2) Bronchitis Status: Acute (3) Gastritis Status: Acute (4) HTN (hypertension) Status: Chronic (5) Cognitive decline Status: Chronic Hospital Course - Lab Results Lab Results: Micro Results 05/08/18 04:08 Urine Random Urine Culture - Final No Growth (<1,000 CFU/ML) 05/07/18 20:10 Blood Blood Culture - Preliminary NO GROWTH AFTER 24 HOURS 05/07/18 19:40 Blood Blood Culture - Preliminary NO GROWTH AFTER 24 HOURS Most Recent Lab Values WBC 11.7 K/uL (4.8-10.8) H 05/09/18 07:22 RBC 4.22 Mil/uL (3.80-5.20) 05/09/18 07:22 Hgb 11.9 g/dL (11.0-16.0) 05/09/18 07:22 Hct 36.3 % (34.0-47.0) 05/09/18 07:22 MCV 86.0 fL (81.0-99.0) 05/09/18 07:22 MCH 28.2 pg (27.0-31.0) 05/09/18 07:22 MCHC 32.8 g/dL (33.0-37.0) L 05/09/18 07:22 RDW 14.3 % (11.5-14.5) 05/09/18 07:22 Plt Count 268 K/uL (130-400) 05/09/18 07:22 MPV 9.9 fL (7.2-11.7) 05/09/18 07:22 Neut % (Auto) 74.5 % (50.0-75.0) 05/09/18 07:22 Lymph % (Auto) 14.4 % (20.0-40.0) L 05/09/18 07:22 [place] % (Auto) 10.2 % (0.0-10.0) H 05/09/18 07:22 Eos % (Auto) 0.6 % (0.0-4.0) 05/09/18 07:22 Baso % (Auto) 0.3 % (0.0-2.0) 05/09/18 07:22 Neut # (Auto) 8.7 K/uL (1.8-7.0) H 05/09/18 07:22 Lymph # (Auto) 1.7 K/uL (1.0-4.3) 05/09/18 07:22 [place] # (Auto) 1.2 K/uL (0.0-0.8) H 05/09/18 07:22 Eos # (Auto) 0.1 K/uL (0.0-0.7) 05/09/18 07:22 Baso # (Auto) 0.0 K/uL (0.0-0.2) 05/09/18 07:22 pO2 26 mm/Hg (30-55) L 05/07/18 20:45 VBG pH 7.44 (7.32-7.43) H 05/07/18 20:45 VBG pCO2 49 mmHg (40-60) 05/07/18 20:45 VBG HCO3 29.8 mmol/L 05/07/18 20:45 VBG Total CO2 34.8 mmol/L (22-28) H 05/07/18 20:45 VBG O2 Sat (Calc) 53.0 % (40-65) 05/07/18 20:45 VBG Base Excess 7.8 mmol/L (0.0-2.0) H 05/07/18 20:45 VBG Potassium 3.2 mmol/L (3.6-5.2) L 05/07/18 20:45 Sodium 137.0 mmol/l (132-148) 05/07/18 20:45 Chloride 99.0 mmol/L (98-107) 05/07/18 20:45 Glucose 153 mg/dl (65-105) H 05/07/18 20:45 Lactate 1.4 mmol/L (0.7-2.1) 05/07/18 20:45 Sodium 136 mmol/L (132-148) 05/09/18 07:22 Potassium 3.7 mmol/L (3.6-5.2) 05/09/18 07:22 Chloride 102 mmol/L (98-107) 05/09/18 07:22 Carbon Dioxide 25 mmol/L (22-30) 05/09/18 07:22 Anion Gap 12 (10-20) 05/09/18 07:22 BUN 6 mg/dL (7-17) L 05/09/18 07:22 Creatinine 0.6 mg/dL (0.7-1.2) L 05/09/18 07:22 Est GFR ( Amer) > 60 05/09/18 07:22 Est GFR (Non-Af Amer) > 60 05/09/18 07:22 POC Glucose (mg/dL) 143 mg/dL (65-110) H 05/09/18 06:40 Random Glucose 136 mg/dL (65-105) H 05/09/18 07:22 Calcium 8.5 mg/dl (8.6-10.4) L 05/09/18 07:22 Phosphorus 2.4 mg/dL (2.5-4.5) L 05/09/18 07:22 Magnesium 2.0 mg/dL (1.6-2.3) 05/09/18 07:22 Total Bilirubin 1.3 mg/dL (0.2-1.3) 05/09/18 07:22 AST 62 U/L (14-36) H D 05/09/18 07:22 ALT 47 U/L (9-52) 05/09/18 07:22 Alkaline Phosphatase 124 U/L (38-126) 05/09/18 07:22 Troponin I < 0.0120 ng/mL (0.00-0.120) 05/07/18 20:23 NT-Pro-B Natriuret Pep 196 pg/mL (0-900) 05/07/18 20:23 Total Protein 6.4 g/dL (6.3-8.3) 05/09/18 07:22 Albumin 3.6 g/dL (3.5-5.0) 05/09/18 07:22 Globulin 2.8 gm/dL (2.2-3.9) 05/09/18 07:22 Albumin/Globulin Ratio 1.3 (1.0-2.1) 05/09/18 07:22 Venous Blood Potassium 3.2 mmol/L (3.6-5.2) L 05/07/18 20:45 Urine Color Yellow (YELLOW) 05/07/18 22:48 Urine Clarity Clear (Clear) 05/07/18 22:48 Urine pH 5.0 (5.0-8.0) 05/07/18 22:48 Ur Specific [place] 1.011 (1.003-1.030) 05/07/18 22:48 Urine Protein Negative mg/dL (NEGATIVE) 05/07/18 22:48 Urine Glucose (UA) Normal mg/dL (Normal) 05/07/18 22:48 Urine Ketones 2+ mg/dL (NEGATIVE) H 05/07/18 22:48 Urine Blood 1+ (NEGATIVE) H 05/07/18 22:48 Urine Nitrate Negative (NEGATIVE) 05/07/18 22:48 Urine Bilirubin Negative (NEGATIVE) 05/07/18 22:48 Urine Urobilinogen Normal mg/dL (0.2-1.0) 05/07/18 22:48 Ur Leukocyte Esterase 2+ Adina/uL (Negative) H 05/07/18 22:48 Urine WBC (Auto) 10 /hpf (0-5) H 05/07/18 22:48 Urine RBC (Auto) 2 /hpf (0-3) 05/07/18 22:48 Ur Squamous Epith Cells 1 /hpf (0-5) 05/07/18 22:48 Urine Bacteria Rare (<OCC) 05/07/18 22:48 Influenza Typ A,B (EIA) Negative for flu a/b (NEGATIVE) 05/07/18 20:23 - Hospital Course Hospital Course: This is a 77 year old female with PMH of arthritis, NIDDM2, back problems, HTN, hypercholesterolemia, osteoporosis who complains of a 1.5 week history of flu like symptoms, productive cough, and bodyaches. Patient also reports feeling weak and having poor oral intake. Endorses low grade fever at home. Pt was r ecently diagnosed with gastritis on EGD secondary to NSAID use for arthritic pain. Patient denies chest pain, sob, abdominal pain. PMD: Dr. Melton GI: Dr. Stack PMH: arthritis, NIDDM2, back problems, HTN, hypercholesterolemia, osteoporosis, recently diagnosed with gastritis on EGD secondary to NSAID use for arthritic pain PSH: (x3) Meds: Metformin, HCTZ, Losartan, Protonix, diflucan Allx: NKDA This is a 77 year old female with PMH of arthritis, NIDDM2, back problems, HTN, hypercholesterolemia, osteoporosis recently diagnosed with gastritis on EGD secondary to NSAID use for arthritic pain who complains of a 1.5 week history of flu like symptoms, productive cough, and bodyaches. Plan UTI f/u urine cultures Doxy 100 IVPB started 05/08 Recent gastritis diagnosis on EGD Dr Chandler Consulted GI f/u am H Pylori and Cdiff Protonix 40 mg PO BID Sucralfate 1 gm PO BID Dehydration with contraction alkalosis likely from recovering from flu Influenza a/b is negative NS IVF at 125 mL/hr Replete potassium and f/u morning labs Bronchitis CXR shows no obvious infiltrate; f/u official reading Doxycycline 100 mg IVPB q12h Guaifenesin 600 mg PO BID NIDDM Hold metformin as patient currently going through flu like symptoms Accuchecks ACHS ISS low achs Hx of HTN Continue home losartan Hold HCTZ as pt has contraction alkalosis PLAN Patient to be discharged home with PT services Please take Doxycycline 100mg PO 2x a day at 8am and 8pm for 14 days Please take PeptoBismol 2 tabs 4 x a day for 14 days Please take Metronidazole 250 4x a day for 14 days Please take Protonix PO 2x a day at 8am and 8pm for 2 weeks Please take Losartan 100mg PO daily at 8am d/c valsartan.hctz combo Please follow up with Dr Stack within 2 weeks of discharge Discharge Exam - Head Exam Head Exam: ATRAUMATIC, NORMOCEPHALIC - Additional Findings Additional findings: - Constitutional Appears: Non-toxic, No Acute Distress - Head Exam Head Exam: NORMAL INSPECTION - Eye Exam Eye Exam: EOMI, Normal appearance - ENT Exam ENT Exam: Mucous Membranes Dry - Respiratory Exam Respiratory Exam: Clear to Auscultation Bilateral, NORMAL BREATHING PATTERN. absent: Rales, Rhonchi, Wheezes - Cardiovascular Exam Cardiovascular Exam: Tachycardia, REGULAR RHYTHM, +S1, +S2 - GI/Abdominal Exam GI & Abdominal Exam: Normal Bowel Sounds, Soft. absent: Tenderness - Extremities Exam Extremities exam: Positive for: normal inspection, pedal pulses present - Back Exam Back exam: NORMAL INSPECTION. absent: CVA tenderness (L), CVA tenderness (R) - Neurological Exam Neurological exam: Alert, Oriented x3 - Psychiatric Exam Psychiatric exam: Normal Affect, Normal Mood - Skin Skin Exam: Dry, Normal Color, Warm Additional comments: Discharge Plan - Discharge Medications Prescriptions: Bismuth Subsalicylate [Pepto Bismol] 262 mg PO QID #112 ctb RX: Doxycycline Hyclate 100 mg PO BID #28 capsule RX: metroNIDAZOLE [Flagyl] 250 mg PO QID #56 tab RX: Pantoprazole [Protonix EC Tab] 40 mg PO BID #28 ect - Follow Up Plan Condition: GOOD Disposition: HOME/ ROUTINE Instructions: Heart Healthy Diet, Urinary Tract Infection, Adult (DC), Metronidazole (Systemic), Generalized Weakness (DC), Doxycycline, Pantoprazole, Bismuth Subsalicylate, Dysuria (GEN) Additional Instructions: Patient to be discharged home with PT services Please take Doxycycline 100mg PO 2x a day at 8am and 8pm for 14 days Please take PeptoBismol 2 tabs 4 x a day for 14 days Please take Metronidazole 250 4x a day for 14 days Please take Protonix PO 2x a day at 8am and 8pm for 2 weeks Please take Losartan 100mg PO daily at 8am discontinue Valsartan/hctz combination Please follow up with Dr Stack within 2 weeks of discharge Referrals: Kev Stack MD [Medical Doctor] - <Mervat Quinonez - Last Filed: 05/10/18 16:42> Provider - Provider Date of Admission: 05/08/18 00:53 Attending physician: Corbin Martel MD Consults: 05/08/18 11:44 Gastroenterology Consult Routine Comment: gastritis, history of NSAID use, bilious vomiting Consulting Provider: Kings Rodriges Consulting Physician: Kings Rodriges Reason for Consult: gastritis, history of NSAID use, bilious vomiting Hospital Course - Lab Results Lab Results: Micro Results 05/07/18 20:10 Blood Blood Culture - Preliminary NO GROWTH AFTER 48 HOURS 05/07/18 19:40 Blood Blood Culture - Preliminary NO GROWTH AFTER 48 HOURS 05/08/18 04:08 Urine Random Urine Culture - Final No Growth (<1,000 CFU/ML) Most Recent Lab Values WBC 11.7 K/uL (4.8-10.8) H 05/09/18 07:22 RBC 4.22 Mil/uL (3.80-5.20) 05/09/18 07:22 Hgb 11.9 g/dL (11.0-16.0) 05/09/18 07:22 Hct 36.3 % (34.0-47.0) 05/09/18 07:22 MCV 86.0 fL (81.0-99.0) 05/09/18 07:22 MCH 28.2 pg (27.0-31.0) 05/09/18 07:22 MCHC 32.8 g/dL (33.0-37.0) L 05/09/18 07:22 RDW 14.3 % (11.5-14.5) 05/09/18 07:22 Plt Count 268 K/uL (130-400) 05/09/18 07:22 MPV 9.9 fL (7.2-11.7) 05/09/18 07:22 Neut % (Auto) 74.5 % (50.0-75.0) 05/09/18 07:22 Lymph % (Auto) 14.4 % (20.0-40.0) L 05/09/18 07:22 [place] % (Auto) 10.2 % (0.0-10.0) H 05/09/18 07:22 Eos % (Auto) 0.6 % (0.0-4.0) 05/09/18 07:22 Baso % (Auto) 0.3 % (0.0-2.0) 05/09/18 07:22 Neut # (Auto) 8.7 K/uL (1.8-7.0) H 05/09/18 07:22 Lymph # (Auto) 1.7 K/uL (1.0-4.3) 05/09/18 07:22 [place] # (Auto) 1.2 K/uL (0.0-0.8) H 05/09/18 07:22 Eos # (Auto) 0.1 K/uL (0.0-0.7) 05/09/18 07:22 Baso # (Auto) 0.0 K/uL (0.0-0.2) 05/09/18 07:22 pO2 26 mm/Hg (30-55) L 05/07/18 20:45 VBG pH 7.44 (7.32-7.43) H 05/07/18 20:45 VBG pCO2 49 mmHg (40-60) 05/07/18 20:45 VBG HCO3 29.8 mmol/L 05/07/18 20:45 VBG Total CO2 34.8 mmol/L (22-28) H 05/07/18 20:45 VBG O2 Sat (Calc) 53.0 % (40-65) 05/07/18 20:45 VBG Base Excess 7.8 mmol/L (0.0-2.0) H 05/07/18 20:45 VBG Potassium 3.2 mmol/L (3.6-5.2) L 05/07/18 20:45 Sodium 137.0 mmol/l (132-148) 05/07/18 20:45 Chloride 99.0 mmol/L (98-107) 05/07/18 20:45 Glucose 153 mg/dl (65-105) H 05/07/18 20:45 Lactate 1.4 mmol/L (0.7-2.1) 05/07/18 20:45 Sodium 136 mmol/L (132-148) 05/09/18 07:22 Potassium 3.7 mmol/L (3.6-5.2) 05/09/18 07:22 Chloride 102 mmol/L (98-107) 05/09/18 07:22 Carbon Dioxide 25 mmol/L (22-30) 05/09/18 07:22 Anion Gap 12 (10-20) 05/09/18 07:22 BUN 6 mg/dL (7-17) L 05/09/18 07:22 Creatinine 0.6 mg/dL (0.7-1.2) L 05/09/18 07:22 Est GFR ( Amer) > 60 05/09/18 07:22 Est GFR (Non-Af Amer) > 60 05/09/18 07:22 POC Glucose (mg/dL) 142 mg/dL (65-110) H 05/09/18 12:01 Random Glucose 136 mg/dL (65-105) H 05/09/18 07:22 Calcium 8.5 mg/dl (8.6-10.4) L 05/09/18 07:22 Phosphorus 2.4 mg/dL (2.5-4.5) L 05/09/18 07:22 Magnesium 2.0 mg/dL (1.6-2.3) 05/09/18 07:22 Total Bilirubin 1.3 mg/dL (0.2-1.3) 05/09/18 07:22 AST 62 U/L (14-36) H D 05/09/18 07:22 ALT 47 U/L (9-52) 05/09/18 07:22 Alkaline Phosphatase 124 U/L (38-126) 05/09/18 07:22 Troponin I < 0.0120 ng/mL (0.00-0.120) 05/07/18 20:23 NT-Pro-B Natriuret Pep 196 pg/mL (0-900) 05/07/18 20:23 Total Protein 6.4 g/dL (6.3-8.3) 05/09/18 07:22 Albumin 3.6 g/dL (3.5-5.0) 05/09/18 07:22 Globulin 2.8 gm/dL (2.2-3.9) 05/09/18 07:22 Albumin/Globulin Ratio 1.3 (1.0-2.1) 05/09/18 07:22 Procalcitonin 0.25 NG/ML (0.19-0.49) 05/09/18 07:22 Venous Blood Potassium 3.2 mmol/L (3.6-5.2) L 05/07/18 20:45 Urine Color Yellow (YELLOW) 05/07/18 22:48 Urine Clarity Clear (Clear) 05/07/18 22:48 Urine pH 5.0 (5.0-8.0) 05/07/18 22:48 Ur Specific [place] 1.011 (1.003-1.030) 05/07/18 22:48 Urine Protein Negative mg/dL (NEGATIVE) 05/07/18 22:48 Urine Glucose (UA) Normal mg/dL (Normal) 05/07/18 22:48 Urine Ketones 2+ mg/dL (NEGATIVE) H 05/07/18 22:48 Urine Blood 1+ (NEGATIVE) H 05/07/18 22:48 Urine Nitrate Negative (NEGATIVE) 05/07/18 22:48 Urine Bilirubin Negative (NEGATIVE) 05/07/18 22:48 Urine Urobilinogen Normal mg/dL (0.2-1.0) 05/07/18 22:48 Ur Leukocyte Esterase 2+ Adina/uL (Negative) H 05/07/18 22:48 Urine WBC (Auto) 10 /hpf (0-5) H 05/07/18 22:48 Urine RBC (Auto) 2 /hpf (0-3) 05/07/18 22:48 Ur Squamous Epith Cells 1 /hpf (0-5) 05/07/18 22:48 Urine Bacteria Rare (<OCC) 05/07/18 22:48 Influenza Typ A,B (EIA) Negative for flu a/b (NEGATIVE) 05/07/18 20:23 Attending/Attestation - Attestation I have personally seen and examined this patient.: Yes I have fully participated in the care of the patient.: Yes I have reviewed all pertinent clinical information, including history, physical exam and plan: Yes Notes (Text): Plan discussed with her daughter at bedside.
--- NOTE | 2018-05-09 20:41 | CARD ---
APPROVED REPORT Date of service: 05/08/2018 EKG Measurement Heart [id number] <Conclusion> Normal sinus rhythm Normal ECG
== END 2018-05-09 14:21 | disposition home or self-care (01) ==
LOC: C.ER 18:48 → C.9E 05-08 00:53 → C.6T 05-08 16:45
PROVIDERS: ADMIT Internal Medicine; ATTEND Internal Medicine
DX: K29.70 Gastritis, unspecified, without bleeding (principal); B96.81 Helicobacter pylori [H. pylori] as the cause of diseases classified elsewhere; J40 Bronchitis, not specified as acute or chronic; N39.0 Urinary tract infection, site not specified; E86.0 Dehydration; E87.3 Alkalosis; K80.20 Calculus of gallbladder without cholecystitis without obstruction; K21.0 Gastro-esophageal reflux disease with esophagitis; I10 Essential (primary) hypertension; E11.9 Type 2 diabetes mellitus without complications; E78.2 Mixed hyperlipidemia; M19.90 Unspecified osteoarthritis, unspecified site; M81.0 Age-related osteoporosis without current pathological fracture; Z79.84 Long term (current) use of oral hypoglycemic drugs; Z79.1 Long term (current) use of non-steroidal anti-inflammatories (NSAID); Z79.899 Other long term (current) drug therapy
CPT/HCPCS: 36415; 71045; 71046; 80053; 81001; 82803; 82948; 83735; 83880; 84100; 84132; 84145; 84484; 85025; 87040; 87086; 87804; 93005; 96372; 97116; 97162; 99285; G0378; G8978; G8979; J0744; J1644; J7030